=== PATIENT | male | born 1965 ===

== ENCOUNTER 2017-12-14 14:32 | Emergency (ER) | payer OTHER ==
[2017-12-14 14:32] VITALS: BMI 28.3
[2017-12-14 14:39] VITALS: BP 138/83; PULSE 74; RESP 16; TEMP 98; O2SAT 98
--- NOTE | 2017-12-14 14:53 | ED PDOC ---
HPI: Back Time Seen by Provider: 12/14/17 14:41 Chief Complaint (Nursing): Back Pain Chief Complaint (Provider): low back ami History Per: Patient Current Symptoms Are (Timing): Still Present Additional Complaint(s): 52 year old male presents to ED for eval of low back pain ongoing for over 1 year. He denies any recent fall or trauma. He denies any acute bowel or bladder dysfunction. Patient states he does not take meds for pain daily. He had a MRI of lumbar spine in October of 2017 but states he has not yet followed up with PMD. No fever or chills. No chest pain, SOB or EDWARDS. PMD: Dr. Angie Kaplan Past Medical History Reviewed: Historical Data, Nursing Documentation, Vital Signs Vital Signs: Last Vital Signs Temp 98 F 12/14/17 14:36 Pulse 74 12/14/17 14:36 Resp 16 12/14/17 14:36 BP 138/83 12/14/17 14:36 Pulse Ox 98 12/14/17 14:36 - Medical History PMH: Back Problems, Diabetes, HTN - Surgical History Surgical History: Appendectomy - Family History Family History: States: No Known Family Hx - Social History Current smoker - smoking cessation education provided: No Alcohol: None Drugs: Denies - Immunization History Hx Tetanus Toxoid Vaccination: No Hx Influenza Vaccination: No Hx Pneumococcal Vaccination: No - Home Medications Home Medications: Ambulatory Orders Medication Instructions Recorded Aspirin [Ecotrin] 81 mg PO DAILY 12/14/16 Metoprolol Tartrate [Lopressor] 100 mg PO DAILY 12/14/16 Cyclobenzaprine [Cyclobenzaprine 10 mg PO TID #15 tab 08/10/17 HCl] Naproxen 500 mg PO BID PRN #20 tab 08/10/17 Cyclobenzaprine [Cyclobenzaprine 10 mg PO TID PRN #20 tab 12/14/17 HCl] Naproxen [Naprosyn] 500 mg PO BID #20 tab 12/14/17 - Allergies Allergies/Adverse Reactions: Allergies Allergy/AdvReac Type Severity Reaction Status Date / Time No Known Allergies Allergy Verified 08/10/17 19:55 Review of Systems ROS Statement: Except As Marked, All Systems Reviewed And Found Negative Constitutional: Negative for: Fever Cardiovascular: Negative for: Chest Pain Respiratory: Negative for: Cough, Shortness of Breath Gastrointestinal: Negative for: Nausea, Vomiting, Abdominal Pain Genitourinary Male: Negative for: Dysuria, Frequency, Incontinence, Hematuria Musculoskeletal: Positive for: Back Pain Neurological: Negative for: Weakness, Numbness, Headache, Dizziness Physical Exam - Reviewed Nursing Documentation Reviewed: Yes Vital Signs Reviewed: Yes - Physical Exam Appears: Positive for: Well, Non-toxic, No Acute Distress Head Exam: Positive for: ATRAUMATIC Skin: Negative for: Rash Eye Exam: Positive for: Normal appearance Neck: Positive for: Normal. Negative for: Pain On Movement Of Neck Cardiovascular/Chest: Positive for: Regular Rate, Rhythm Respiratory: Positive for: Normal Breath Sounds Gastrointestinal/Abdominal: Positive for: Soft. Negative for: Tenderness, Distended, Rebound Back: Positive for: Other (Diffuse tenderness across lower lumbar region with palpable muscle spasm). Negative for: L CVA Tenderness, R CVA Tenderness Extremity: Positive for: Normal ROM Neurologic/Psych: Positive for: Alert, Oriented, Gait (steady) - ECG O2 Sat by Pulse Oximetry: 98 (RA) Pulse Ox Interpretation: Normal Medical Decision Making Medical Decision Makin-year-old with ongoing low back pain Time: 14:49 Plan: - Toradol 30 mg IM STAT - Tylenol 325mg Tab Patient was provided with copy of MRI lumbar spine which was completed in October 2017. Patient feels better after meds given in ED. Upon provider re-evaluation patient is medically stable, and requires no further treatment in the ED at this time. Patient will be discharged. Counseling was provided and all questions were answered regarding diagnosis and need for follow up with PMD to obtain referral to specialist. Patient is in agreement with plan. He is stable for discharge. Scribe Attestation: Documented by Andres Desai, acting as a scribe for Keiko hSerman PA-C. Provider Scribe Attestation: All medical record entries made by the Scribe were at my direction and personally dictated by me. I have reviewed the chart and agree that the record accurately reflects my personal performance of the history, physical exam, medical decision making, and the department course for this patient. I have also personally directed, reviewed, and agree with the discharge instructions and disposition. Disposition - Clinical Impression Clinical Impression: Back pain, Chronic back pain - Patient ED Disposition Is Patient to be Admitted: No Counseled Patient/Family Regarding: Diagnosis, Need For Followup, Rx Given - Disposition Referrals: Agnie Kaplan MD [Family Provider] - Disposition: Routine/Home Disposition Time: 15:07 Condition: STABLE Additional Instructions: TAKE RX MEDS DIRECTED NEEDED FOR PAIN. FOLLOW UP WITH PRIMARY CARE DOCTOR TO OBTAIN SPECIALIST FOR BACK PAIN. Prescriptions: Cyclobenzaprine [Cyclobenzaprine HCl] 10 mg PO TID PRN #20 tab PRN Reason: Muscle Spasm Naproxen [Naprosyn] 500 mg PO BID #20 tab Instructions: Low Back Pain (DC), Back Precautions, Back Exercises Forms: [facility] (Azeri) Print Language: IRISH
== END 2017-12-14 15:41 | disposition home or self-care (01) ==
LOC: H.ER 14:32
DX: M54.9 Dorsalgia, unspecified (principal); G89.29 Other chronic pain; E11.9 Type 2 diabetes mellitus without complications; I10 Essential (primary) hypertension; Z79.82 Long term (current) use of aspirin
CPT/HCPCS: 96372; 99283; J1885